=== PATIENT | male | born 1970 | race African-American/Black ===

== ENCOUNTER 2023-04-09 08:55 | Emergency (ER) | payer OTHER ==
[~2023-04-09] VITALS: Ht 182.9 cm; Wt 81.0 kg
[2023-04-09 09:14] VITALS: O2SAT 98
[2023-04-09 13:08] VITALS: BP 136/84; PULSE 77; RESP 16; TEMP 98.2
== END 2023-04-09 13:11 | disposition home or self-care (01) ==
LOC: ER 09:12
DX: S09.90XA Unspecified injury of head, initial encounter (principal); Y04.0XXA Assault by unarmed brawl or fight, initial encounter; Y93.89 Activity, other specified; Y92.89 Other specified places as the place of occurrence of the external cause; Y99.8 Other external cause status
CPT/HCPCS: 99284